=== PATIENT | female | born 1965 | race American Indian/Alaskan Native ===

== ENCOUNTER 2017-04-19 13:47 | Emergency (ER) | payer OTHER ==
[2017-04-19] MEDS ORDERED: PEPCID PO ONE (14:19)
[2017-04-19] MEDS ORDERED: DECADRON IM ONE (14:19)
--- NOTE | 2017-04-19 14:22 | Emergency Department Report ---
ED General Adult HPI - General Chief complaint: Allergic Reaction Stated complaint: ALLERGIC REACTION Time Seen by Provider: 04/19/17 14:15 Source: patient, EMS Mode of arrival: Wheelchair Limitations: No Limitations - History of Present Illness Initial comments: The patient states that she is had previous allergic reactions similar to this due to seafood particularly shellfish. She does not know that she has been specifically exposed. However, she states that her allergy is so bad that even if she is in a room with shellfish she might develop an allergic reaction. Her doctor gave her prescription for an EpiPen which she self administered. She also took what I believe to be 50 mg of Benadryl by mouth already. She states that she has not developed any difficulty in breathing during this episode. She has never been hospitalized for anaphylaxis. -: Gradual, hour(s) Location: mouth Severity scale (0 -10): 0 - Related Data Home Medications Medication Instructions Recorded Confirmed Last Taken Amlodipine Besylate [Norvasc] 5 mg PO DAILY 04/19/17 04/19/17 04/19/17 Coffee Extract [Green Coffee Jordan] 400 mg PO QDAY 04/19/17 04/19/17 04/19/17 Phentermine HCl 37.5 mg PO QAM 04/19/17 04/19/17 04/19/17 Previous Rx's Medication Instructions Recorded Last Taken Type Famotidine [Pepcid] 20 mg PO BID #20 tablet 04/19/17 Unknown Rx hydrOXYzine HCL [Atarax] 25 mg PO Q6HR PRN #14 tablet 04/19/17 Unknown Rx Allergies Allergy/AdvReac Type Severity Reaction Status Date / Time seafood Allergy Angioedema Uncoded 04/19/17 13:54 ED Review of Systems ROS: Stated complaint: ALLERGIC REACTION Other details as noted in HPI Constitutional: denies: chills, fever Eyes: denies: eye pain, eye discharge, vision change ENT: as per HPI. denies: ear pain, throat pain Respiratory: denies: cough, shortness of breath, wheezing Cardiovascular: denies: chest pain, palpitations Endocrine: no symptoms reported Gastrointestinal: denies: abdominal pain, nausea, diarrhea Genitourinary: denies: urgency, dysuria, discharge Musculoskeletal: denies: back pain, joint swelling, arthralgia Skin: denies: rash, lesions Neurological: denies: headache, weakness, paresthesias Psychiatric: denies: anxiety, depression Hematological/Lymphatic: denies: easy bleeding, easy bruising ED Past Medical Hx - Past Medical History Previous Medical History?: Yes Hx Hypertension: Yes - Surgical History Past Surgical History?: Yes Additional Surgical History: gastric bypass - Social History Smoking Status: Never Smoker Substance Use Type: Prescribed - Medications Home Medications: Home Medications Medication Instructions Recorded Confirmed Last Taken Type Amlodipine Besylate [Norvasc] 5 mg PO DAILY 04/19/17 04/19/17 04/19/17 History Coffee Extract [Green Coffee Jordan] 400 mg PO QDAY 04/19/17 04/19/17 04/19/17 History Famotidine [Pepcid] 20 mg PO BID #20 tablet 04/19/17 Unknown Rx Phentermine HCl 37.5 mg PO QAM 04/19/17 04/19/17 04/19/17 History hydrOXYzine HCL [Atarax] 25 mg PO Q6HR PRN #14 tablet 04/19/17 Unknown Rx ED Physical Exam - General Limitations: No Limitations General appearance: alert, in no apparent distress, obese - Head Head exam: Present: atraumatic, normocephalic - Eye Eye exam: Present: normal appearance - ENT ENT exam: Present: normal orophraynx, mucous membranes moist, other (there is 1 + edema of the upper lip. The tongue is normal the oropharynx is without edema) - Neck Neck exam: Present: normal inspection, other (no swelling no stridor). Absent: tenderness, meningismus - Respiratory Respiratory exam: Present: normal lung sounds bilaterally. Absent: respiratory distress - Cardiovascular Cardiovascular Exam: Present: regular rate, normal rhythm. Absent: systolic murmur, diastolic murmur, rubs, gallop - GI/Abdominal GI/Abdominal exam: Present: soft, normal bowel sounds. Absent: distended, tenderness, guarding, rebound - Extremities Exam Extremities exam: Present: normal inspection - Back Exam Back exam: Present: normal inspection - Neurological Exam Neurological exam: Present: alert, oriented X3, CN II-XII intact. Absent: motor sensory deficit - Psychiatric Psychiatric exam: Present: normal affect, normal mood - Skin Skin exam: Present: warm, dry, intact, normal color. Absent: rash ED Course Vital Signs 04/19/17 04/19/17 04/19/17 13:47 13:55 14:01 Temperature 98.9 F Pulse Rate 104 H 106 H 97 H Respiratory 19 21 Rate Blood Pressure 142/79 119/54 O2 Sat by Pulse 100 99 Oximetry 04/19/17 04/19/17 04/19/17 14:15 14:30 14:45 Temperature Pulse Rate 97 H 98 H 95 H Respiratory 19 21 19 Rate Blood Pressure 120/62 113/67 108/61 O2 Sat by Pulse 100 100 99 Oximetry 04/19/17 04/19/17 04/19/17 15:00 15:15 15:30 Temperature Pulse Rate 90 91 H 86 Respiratory 19 14 16 Rate Blood Pressure 122/69 109/64 112/57 O2 Sat by Pulse 100 100 99 Oximetry 04/19/17 04/19/17 04/19/17 15:45 16:00 16:15 Temperature Pulse Rate 81 84 92 H Respiratory 19 16 21 Rate Blood Pressure 117/67 117/67 126/68 O2 Sat by Pulse 100 100 99 Oximetry 04/19/17 04/19/17 04/19/17 16:30 16:45 17:00 Temperature Pulse Rate 90 87 80 Respiratory 17 20 19 Rate Blood Pressure 116/65 127/73 130/67 O2 Sat by Pulse 100 99 100 Oximetry - Reevaluation(s) Reevaluation #1: Patient has angioedema of the lips which has not progressed. It appears to be slightly better. He has been compliant to the lips and did not affect the oropharynx. She is appropriate for outpatient disposition. 04/19/17 17:50 ED Medical Decision Making - Lab Data Accu-Chek 76 Critical care attestation.: If time is entered above; I have spent that time in minutes in the direct care of this critically ill patient, excluding procedure time. ED Disposition Clinical Impression: Angioedema of lips Qualifiers: Encounter type: initial encounter Qualified Code(s): T78.3XXA - Angioneurotic edema, initial encounter Disposition: - TO HOME OR SELFCARE Is pt being admited?: No Does the pt Need Aspirin: No Condition: Stable Instructions: Angioedema (ED) Additional Instructions: Follow-up with the smoke room operator who previously saw. Rx as directed. Return any worsening symptoms or if the swelling worsens or involves her neck,tongue or you develop any difficulty in breathing or swallowing. Prescriptions: Famotidine [Pepcid] 20 mg PO BID #20 tablet hydrOXYzine HCL [Atarax] 25 mg PO Q6HR PRN #14 tablet PRN Reason: Itching Referrals: PRIMARY CARE, [Primary Care Provider] - 3-5 Days Time of Disposition: 19:14
[2017-04-19] MEDS ORDERED: PEPCID IV ONE ×2 (14:47→15:05)
[2017-04-19] MEDS ORDERED: DECADRON IV ONE (15:05)
[2017-04-19 19:15] VITALS: BP 136/64
== END 2017-04-19 19:40 | disposition home or self-care (01) ==
LOC: ED 13:47
DX: T78.3XXA Angioneurotic edema, initial encounter (principal); I10 Essential (primary) hypertension; Z91.013 Allergy to seafood
CPT/HCPCS: 82962; 96374; 96375; 99283; J1100